=== PATIENT | female | born 1945 | race Asian ===

== ENCOUNTER → 2018-05-20 | Outpatient (CLI) | payer MEDICARE, OTHER | LOC: MC.RAD 08:33 | DX: Z12.31 Encounter for screening mammogram for malignant neoplasm of breast (principal) ==

== ENCOUNTER → 2021-07-07 | Outpatient (CLI) | payer MEDICARE, OTHER | LOC: MC.RAD 13:38 | DX: Z12.31 Encounter for screening mammogram for malignant neoplasm of breast (principal) ==

== ENCOUNTER 2022-01-04 05:12 | Emergency (ER) | payer MEDICARE, OTHER ==
[~2022-01-04] VITALS: Ht 157.5 cm; Wt 56.8 kg
[2022-01-04 05:23] VITALS: TEMP 98.4
[2022-01-04] MEDS ORDERED: SINGULAIR 110 MG/TAB PO (05:33)
[2022-01-04] MEDS ORDERED: SYNTHROID0.05 MG/TA PO (05:34)
[2022-01-04] MEDS ORDERED: ZOCOR 10MG10 MG PO (05:35)
[2022-01-04 07:43] VITALS: BP 171/147; PULSE 93
[2022-01-04 10:20] LABS: ALANINE AMINOTRANSFERASE 26 U/L (0-55); ALBUMIN 3.8 gm/dL (3.4-4.8); ALKALINE PHOSPHATASE 40 U/L (40-150); ANION GAP 13 mmol/L (7-16); AST,SGOT 24 U/L (5-34); BILIRUBIN,TOTAL 1.2 mg/dL (0.2-1.2); BLOOD UREA NITROGEN 19 mg/dL (10-20); CALCIUM 9.6 mg/dL (8.4-10.2); CARBON DIOXIDE 24 mmol/L (23-31); CHLORIDE 104 mmol/L (98-107); CREATININE, serum 0.79 mg/dL (0.57-1.11); GLUCOSE 160 mg/dL (70-99); POTASSIUM 3.1 mmol/L (3.5-4.5); SODIUM 141 mmol/L (136-145); TROPONIN-I < 0.010 ng/mL (0.00-0.033)
[2022-01-04 10:28] LABS: PROTHROMBIN TIME 11.1 SECONDS (9.7-12.8)
[2022-01-04 10:30] LABS: PARTIAL THROMBOPLASTIN TIME 32.8 SECONDS (26.0-37.0)
[2022-01-04 12:52] LABS: BASO # 0.1 K/mm3 (0.0-0.2); BASO % 0.8 % (0.0-2.0); EOS # 0.2 K/mm3 (0.0-0.7); EOS % 2.3 % (0.0-4.0); GRAN % 60.9 % (42.2-75.2); HEMATOCRIT 37.1 % (37.0-47.0); LYMPH % 29.9 % (20.0-51.0); MEAN CELL VOLUME 91 fl (80.0-100.0); MEAN CORPUSCULAR HEMOGLOBIN 29 pg (27-31); MEAN CORPUSCULAR HGB CONC 32 g/dl (33.0-37.0); MEAN PLATELET VOLUME 10.8 fl (7.4-10.4); MONO # 0.4 K/mm3 (0.1-0.6); MONO % 5.9 % (1.7-9.3); PLATELET COUNT 254 K/mm3 (130-400); RED BLOOD COUNT 4.08 M/mm3 (4.10-5.30)
[2022-01-04 18:59] LABS: COLLECTION METHOD CLEAN CATCH
[2022-01-04 19:18] LABS: PH 7 (5-8); SQUAMOUS EPITHELIAL 0-2 /hpf (0-10); URINE APPEARANCE Clear (CLEAR/HAZY); URINE BACTERIA None Seen /hpf (NONE SEEN); URINE BILIRUBIN Negative (NEGATIVE); URINE BLOOD Negative (NEGATIVE); URINE COLOR Straw (YELLOW); URINE GLUCOSE Negative (NEGATIVE); URINE KETONE Negative (NEGATIVE); URINE LEUKOCYTE ESTERASE Negative (NEGATIVE); URINE NITRATE Negative (NEGATIVE); URINE PROTEIN(semi-quant) Negative (NEGATIVE); URINE RBC 0-2 /hpf (0-2); URINE UROBILINOGEN Negative (NEGATIVE)
== END 2022-01-04 07:50 | disposition short-term general hospital (02) ==
LOC: COL.ER 05:12
PROVIDERS: Emergency Medicine
DX: S06.2X9A Diffuse traumatic brain injury with loss of consciousness of unspecified duration, initial encounter (principal); W01.198A Fall on same level from slipping, tripping and stumbling with subsequent striking against other object, initial encounter
CPT/HCPCS: J1953

== ENCOUNTER 2022-01-18 04:07 | Emergency (ER) | payer MEDICARE, OTHER ==
[~2022-01-18] VITALS: Ht 154.9 cm; Wt 55.5 kg
[~2022-01-18 04:07] MED LIST: SINGULAIR 110 MG/TAB PO; SYNTHROID0.05 MG/TA PO; ZOCOR 10MG10 MG PO
[2022-01-18 04:14] VITALS: TEMP 97.8
[2022-01-18 04:35] LABS: BASO % 0.6 % (0.0-2.0); EOS # 0.2 K/mm3 (0.0-0.7); EOS % 2.5 % (0.0-4.0); GRAN # 3.8 K/mm3 (1.4-6.5); GRAN % 56.6 % (42.2-75.2); HEMOGLOBIN 12.3 g/dl (12.5-16.0); LYMPH # 2.3 K/mm3 (1.2-3.4); LYMPH % 33.6 % (20.0-51.0); MEAN CELL VOLUME 89 fl (80.0-100.0); MEAN CORPUSCULAR HEMOGLOBIN 30 pg (27-31); MEAN CORPUSCULAR HGB CONC 34 g/dl (33.0-37.0); MEAN PLATELET VOLUME 10.4 fl (7.4-10.4); MONO # 0.5 K/mm3 (0.1-0.6); MONO % 6.6 % (1.7-9.3); PLATELET COUNT 292 K/mm3 (130-400); RED BLOOD COUNT 4.07 M/mm3 (4.10-5.30); REDCELL DISTRIBUTION WIDTH-CV 13.8 % (11.5-14.5)
[2022-01-18 04:37] LABS: HEMATOCRIT 36.4 % (37.0-47.0)
[2022-01-18] MEDS ORDERED: DYAZIDE 25 MG-31 CAP PO (04:41)
[2022-01-18] MEDS ORDERED: CALCIUM 600 MG1 EAC2 PO (04:42)
[2022-01-18] MEDS ORDERED: [UNRECOGNIZED DRUG - CODE] TOP (04:42)
[2022-01-18] MEDS ORDERED: RT ADVAIR HFA 1112 G IH (04:42)
[2022-01-18] MEDS ORDERED: ZYRTEC 10MG10 MG PO (04:43)
[2022-01-18 04:44] LABS: INR 0.9 (0.8-3.0); PROTHROMBIN TIME 10.5 SECONDS (9.7-12.8)
[2022-01-18 04:47] LABS: PARTIAL THROMBOPLASTIN TIME 33.4 SECONDS (26.0-37.0)
[2022-01-18 04:52] LABS: ALANINE AMINOTRANSFERASE 20 U/L (0-55); ALBUMIN 3.9 gm/dL (3.4-4.8); ALKALINE PHOSPHATASE 45 U/L (40-150); ANION GAP 12 mmol/L (7-16); AST,SGOT 21 U/L (5-34); BILIRUBIN,TOTAL 0.8 mg/dL (0.2-1.2); BLOOD UREA NITROGEN 16 mg/dL (10-20); CALCIUM 10.1 mg/dL (8.4-10.2); CARBON DIOXIDE 26 mmol/L (23-31); CHLORIDE 102 mmol/L (98-107); CREATINE KINASE 55 U/L (29-168); CREATININE, serum 0.74 mg/dL (0.57-1.11); GLUCOSE 104 mg/dL (70-99); POTASSIUM 3.4 mmol/L (3.5-4.5); SODIUM 140 mmol/L (136-145)
[2022-01-18 04:59] LABS: TROPONIN-I < 0.010 ng/mL (0.00-0.033)
[2022-01-18] MEDS ORDERED: ANTIVERT 25MG25 MG PO ×3 (06:23→06:27)
[2022-01-18] MEDS ORDERED: ZOFRAN ODT4 MG PO ×3 (06:23→06:27)
[2022-01-18 06:31] VITALS: BP 158/85; PULSE 53
== END 2022-01-18 06:40 | disposition home or self-care (01) ==
LOC: COL.ER 04:07
PROVIDERS: Emergency Medicine
DX: R42 Dizziness and giddiness (principal)
CPT/HCPCS: J2405

== ENCOUNTER → 2023-05-25 | Outpatient (CLI) | payer MEDICARE, OTHER ==
[~2023-05-25] MED LIST changes: +ANTIVERT 25MG25 MG PO; +CALCIUM 600 MG1 EAC2 PO; +DYAZIDE 25 MG-31 CAP PO; +RT ADVAIR HFA 1112 G IH; +ZOFRAN ODT4 MG PO; +ZYRTEC 10MG10 MG PO; +[UNRECOGNIZED DRUG - CODE] TOP
== END ==
LOC: CANSCHCLI → MC.RAD 07-07 09:30
DX: Z12.31 Encounter for screening mammogram for malignant neoplasm of breast (principal)